=== PATIENT | male | born 2005 | race Caucasian/White ===

== ENCOUNTER 2025-04-19 16:10 | Emergency (ER) | payer SELFPAY ==
[2025-04-19 16:13] VITALS: BP 131/81; PULSE 70; TEMP 37.2; O2SAT 97; BMI 24.4
--- NOTE | 2025-04-19 16:22 | ED_ITS ---
HPI HPI - General Adult General Chief complaint: Eye Problems Stated complaint: Eye Time Seen by Provider: 04/19/25 16:18 Source: patient Mode of arrival: walk-in Limitations: no limitations History of Present Illness HPI narrative: 19-year-old male presents to the emergency department for redness and drainage to his right eye only. He has had it for 4 days and was trying some home remed ies such as ice. It was not helping so he came in here today. No history of trauma or foreign body. Related Data Previous Rx's ?Medication ?Instructions ?Recorded sulfacetamide sodium 10 % eye drops 2 drp ophthalmic ( eye) Q4H #15 mL 04/19/25 Allergies Allergy/AdvReac Type Severity Reaction Status Date / Time No Known Drug Allergies Allergy Verified 04/19/25 16:13 Opioid HPI Opioid Management Most Recent Opioid Data: Last Pain Scale 4 Today, 16:13 Review of Systems ROS Narrative A ten point review of systems is negative except as noted above. PFSH PFSH Social History Little interest or pleasure in doing things: not at all Feeling down, depressed, or hopeless: not at all Exam Narrative Exam Narrative: Nurses note and vital signs reviewed and patient is not hypoxic. General: The patient appears well and in no apparent distress. Patient is resting comfortably on cart. Skin: Warm, dry, no pallor noted. There is no rash noted. Head: Normocephalic, atraumatic Eye: Left eye is normal. Right conjunctiva is injected with some scleral edema. No periorbital swelling. Extraocular movements are intact Ears, Nose, Mouth, and Throat: oral mucosa is moist. Nares patent. Cardiovascular: Regular Rate and Rhythm Respiratory: Patient is in no distress, no accessory muscle use, lungs are clear to auscultation, no wheezing, rales or rhonchi Back: non-tender GI: Soft and nontender Musculoskeletal: No joint swelling Neurological: A&O, normal speech Psychiatric: Cooperative Constitutional Vital Signs, click to edit/add: Last Vital Signs Temp 98.9 F 04/19/25 16:13 Pulse 70 04/19/25 16:13 Resp 15 04/19/25 16:13 BP 131/81 04/19/25 16:13 Pulse Ox 97 04/19/25 16:13 O2 Del Method Room Air 04/19/25 16:13 Course Vital Signs Vital signs: Vital Signs Temperature 98.9 F 04/19/25 16:13 Pulse Rate 70 04/19/25 16:13 Respiratory Rate 15 04/19/25 16:13 Blood Pressure 131/81 04/19/25 16:13 Pulse Oximetry 97 04/19/25 16:13 Oxygen Delivery Method Room Air 04/19/25 16:13 Temperature 98.9 F 04/19/25 16:13 Pulse Rate 70 04/19/25 16:13 Respiratory Rate 15 04/19/25 16:13 Blood Pressure 131/81 04/19/25 16:13 Pulse Oximetry 97 04/19/25 16:13 Oxygen Delivery Method Room Air 04/19/25 16:13 Medical Decision Making MDM Narrative Medical decision making narrative: My clinical impression is that the patient has conjunctivitis and he was prescribed Bleph-10. Treatment diagnosis and follow-up were discussed with the patient. Differential Diagnosis Differential Diagnosis: Conjunctivitis, subconjunctival hemorrhage Discharge Plan Discharge Chief Complaint: Eye Problems Clinical Impression: Bacterial conjunctivitis Patient Disposition: Home, Self-Care Time of Disposition Decision: 16:21 Condition: Good Mode of Transportation: Private Vehicle Prescriptions / Home Meds: New sulfacetamide sodium 10 % drops 2 drp ophthalmic (eye) Q4H Qty: 15 0RF Print Language: Swedish Instructions: Conjunctivitis (ED) Referrals: JANELLE ALFREDO [Primary Care Provider] - 1 week
== END 2025-04-19 16:36 | disposition home or self-care (01) ==
PROVIDERS: Emergency Provider Emergency Medicine
DX: H10.89 Other conjunctivitis (principal)
CPT/HCPCS: 99283